=== PATIENT | female | born 1940 | race Hispanic/Latino ===

== ENCOUNTER 2019-02-03 16:43 | Emergency (ER) | payer MEDICARE ==
[2019-02-03 18:04] LABS: HEMOGLOBIN 12.7 g/dL (12.0-16.0); MEAN CORPUSCULAR HGB CONC 33.8 g/dL (33.0-37.0); RBC 4.52 Mil/uL (3.80-5.20); RED CELL DISTRIBUTION WIDTH 14.1 % (11.5-14.5); WHITE BLOOD COUNT 9.9 K/uL (4.8-10.8)
[2019-02-03 18:21] LABS: BLOOD UREA NITROGEN 25 mg/dl (7-17); CALCIUM 9.7 mg/dL (8.4-10.2); GFR NON-AFRICAN AMERICAN 54
--- NOTE | 2019-02-03 18:24 | ED PDOC ---
HPI: Hypertension/Hypotension Time Seen by Provider: 02/03/19 17:07 Chief Complaint (Nursing): High Blood Pressure History Per: Patient, Family History/Exam Limitations: no limitations Onset/Duration Of Symptoms: Days Additional Complaint(s): 78 year old F with history of HTN, HLD presenting with elevated pressure read ings. She has not been taking her amlodipine as prescribed since summer and takes it sparingly, max one dose per week because she felt "Fine" and didn't think she needed to continue to take it. States she was at physical therapy today and physical therapist was concerned about "tightness" in the patient's calf although the patient had no calf-related symptoms whatsoever and the therapist measured the BP which came out in 150s systolic. The therapist then called Dr. Cannon who instructed the patient to come to the ER. The patient instead went home and measured her blood pressure readings for the first time on her own in 6 months and had readings as high as 200/90. Patient states she feels fine- no headache, vision changes, numbness, weakness, chest pain, shortness of breath or any other symptoms. Of note, patient has been under stress recently as well and has been very concerned about the progress of her knee and physical therapy. PMD: Dr. Cannon Past Medical History Reviewed: Historical Data, Nursing Documentation, Vital Signs Vital Signs: Last Vital Signs Temp 97.7 F 02/03/19 17:00 Pulse 92 H 02/03/19 17:00 Resp 20 02/03/19 17:00 BP 188/96 H 02/03/19 17:00 Pulse Ox 98 02/03/19 17:00 - Medical History PMH: HTN, Hypercholesterolemia, Hyperlipidemia, TIA - Family History Family History: States: Unknown Family Hx - Allergies Allergies/Adverse Reactions: Allergies Allergy/AdvReac Type Severity Reaction Status Date / Time No Known Allergies Allergy Verified 02/03/19 16:59 Review of Systems ROS Statement: Except As Marked, All Systems Reviewed And Found Negative Physical Exam - Reviewed Nursing Documentation Reviewed: Yes Vital Signs Reviewed: Yes - Physical Exam Appears: Positive for: Well, Non-toxic, No Acute Distress Head Exam: Positive for: ATRAUMATIC, NORMAL INSPECTION, NORMOCEPHALIC Skin: Positive for: Normal Color, Warm, DRY Eye Exam: Positive for: EOMI, Normal appearance, PERRL ENT: Positive for: Normal ENT Inspection Neck: Positive for: Normal, Painless ROM Cardiovascular/Chest: Positive for: Regular Rate, Rhythm Respiratory: Positive for: CNT, Normal Breath Sounds Gastrointestinal/Abdominal: Positive for: Normal Exam, Soft Back: Positive for: Normal Inspection Extremity: Positive for: Normal ROM Neurological/Psych: Positive for: Awake, Alert, Normal Tone, Symmetric/Intact Strength - Laboratory Results Result Diagrams: 02/03/19 17:56 02/03/19 17:56 - ECG O2 Sat by Pulse Oximetry: 98 Medical Decision Making Medical Decision Making: Patient presenting with asymptomatic hypertension --Very well appearing, other vitals stable --Likely HTN is related to non-compliance and stress --Will give double dose of her amlodidpine, check labs to eval for renal insufficiency, EKG for acute ischemia 700PM --Will endorse to Dr. Tran pending BP recheck and final disposition Disposition - Clinical Impression Clinical Impression: Hypertension - Patient ED Disposition Is Patient to be Admitted: Transfer of Care - Disposition Disposition: Transfer of Care Disposition Time: 19:00 Condition: STABLE Forms: [employer] (Greek) Patient Signed Over To: Rd Tran Y Handoff Comments: pending re-eval
[2019-02-03 18:34] LABS: SQUAMOUS EPITHIAL < 1 /hpf (0-5); URINE BILIRUBIN NEGATIVE (NEGATIVE); URINE BLOOD NEGATIVE (NEGATIVE); URINE CLARITY SLIGHTY-CLOUDY (Clear); URINE COLOR STRAW (YELLOW); URINE GLUCOSE (UA) 50 mg/dL (NEGATIVE); URINE LEUKOCYTE ESTERASE TRACE Leu/uL (Negative); URINE PROTEIN NEGATIVE (NEGATIVE); URINE UROBILINOGEN 0.2-1.0 mg/dL (0.2-1.0)
--- NOTE | 2019-02-03 19:30 | ED PDOC ---
- Laboratory Results Result Diagrams: 02/03/19 17:56 02/03/19 17:56 Lab Results: Urine Color Straw (YELLOW) 02/03/19 17:56 Urine Clarity Slighty-cloudy (Clear) 02/03/19 17:56 Urine pH 6.0 (5.0-8.0) 02/03/19 17:56 Ur Specific [place] 1.012 (1.003-1.030) 02/03/19 17:56 Urine Protein Negative mg/dL (NEGATIVE) 02/03/19 17:56 Urine Glucose (UA) 50 mg/dL (NEGATIVE) 02/03/19 17:56 Urine Ketones Negative mg/dL (NEGATIVE) 02/03/19 17:56 Urine Blood Negative (NEGATIVE) 02/03/19 17:56 Urine Nitrate Negative (NEGATIVE) 02/03/19 17:56 Urine Bilirubin Negative (NEGATIVE) 02/03/19 17:56 Urine Urobilinogen 0.2-1.0 mg/dL (0.2-1.0) 02/03/19 17:56 Ur Leukocyte Esterase Trace Ana/uL (Negative) 02/03/19 17:56 Urine RBC (Auto) 1 /hpf (0-3) 02/03/19 17:56 Urine Microscopic WBC 8 /hpf (0-5) H 02/03/19 17:56 Ur Squamous Epith Cells < 1 /hpf (0-5) 02/03/19 17:56 - ECG O2 Sat by Pulse Oximetry: 98 Medical Decision Making Medical Decision Makin:00 Patient signed out to this provider from Dr. John. Pending reevaluation. 20:11 Blood pressure has decreased. pt ambulating in no distress. Patient is stable for discharge. Scribe Attestation: Documented by Abdirizak Ayala acting as a scribe for Rd Tran MD. Provider Scribe Attestation: All medical record entries made by the Scribe were at my direction and personally dictated by me. I have reviewed the chart and agree that the record accurately reflects my personal performance of the history, physical exam, medical decision making, and the department course for this patient. I have also personally directed, reviewed, and agree with the discharge instructions and disposition. Disposition Counseled Patient/Family Regarding: Diagnosis, Need For Followup - Clinical Impression Clinical Impression: Hypertension - POA Present On Arrival: None - Disposition Disposition: Routine/Home Disposition Time: 20:15 Condition: IMPROVED Additional Instructions: follow up with your primary doctor in 1-2 days return to the ED with any worsening or concerning symptoms Instructions: High Blood Pressure (DC) Forms: [employer] (Albanian)
[2019-02-03 19:55] VITALS: RESP 18
[2019-02-03 20:29] VITALS: BP 170/100; PULSE 72; TEMP 98.2
[2019-02-04 03:16] VITALS: O2SAT 98
--- NOTE | 2019-02-04 18:53 | CARD ---
APPROVED REPORT Date of service: 02/03/2019 EKG Measurement Heart [id number] <Conclusion> Normal sinus rhythm Moderate voltage criteria for LVH, may be normal variant Inferior infarct, age undetermined Abnormal ECG
== END 2019-02-03 20:18 | disposition home or self-care (01) ==
LOC: H.ER 16:43
DX: I10 Essential (primary) hypertension (principal); E78.00 Pure hypercholesterolemia, unspecified; Z86.73 Personal history of transient ischemic attack (TIA), and cerebral infarction without residual deficits